=== PATIENT | female | born 1970 | race African-American/Black ===

== ENCOUNTER 2016-09-13 11:52 | Emergency (ER) | payer OTHER ==
--- NOTE | 2016-09-13 12:33 | PROVIDER DOCUMENTATION ---
HPI-General Adult - General Chief Complaint: Generalized Pain Stated Complaint: FEVER/CP/MUSCLE CRAMPS Time Seen by Provider: 09/13/16 12:07 Source: patient Allergies/Adverse Reactions: Patient Allergies Allergy/AdvReac Type Severity Reaction Status Date / Time acetaminophen [From Lortab] Allergy SWELLING Verified 09/13/16 12:09 aspirin Allergy SWELLING Verified 09/13/16 12:09 hydrocodone bitartrate * Allergy SWELLING Verified 09/13/16 12:09 [From Lortab] hydromorphone HCl * Allergy SWELLING Verified 09/13/16 12:09 [From Dilaudid] Latex, Natural Rubber Allergy ANAPHYLAXIS Verified 09/13/16 12:09 metoclopramide HCl * Allergy RASH Verified 09/13/16 12:09 [From Reglan] morphine Allergy SWELLING Verified 09/13/16 12:09 ondansetron HCl * Allergy ANAPHYLAXIS Verified 09/13/16 12:09 [From Zofran (as hydrochloride)] Penicillins Allergy SWELLING Verified 09/13/16 12:09 pregabalin [From Lyrica] Allergy RASH Verified 09/13/16 12:09 Sulfa (Sulfonamide Allergy SWELLING Verified 09/13/16 12:09 Antibiotics) tetanus and diphtheria Allergy RASH Verified 09/13/16 12:09 toxoids [Tetanus&Diphtheria Toxoid] Home Medications: Home Medication List Medication Instructions Recorded Confirmed Last Taken Type Epinephrine Auto Injector [Epipen] 0.3 mg IM DIRECTED PRN PRN 02/06/14 Unknown History Cyclobenzaprine [Flexeril] 10 mg PO TID PRN #15 tablet 09/13/16 Unknown Rx Gabapentin [Neurontin] 100 mg PO TID 09/13/16 09/13/16 09/12/16 History - History of Present Illness -Gen Adult Nature of Presenting Problems: pt is a 45 y/o F that presents to the ER with 2 days of muscle cramps, and fever. History of fibromyalgia. Denies cough/congestion, n/v/d. Has been around the flu Location of Pain/Injury: reports: generalized Quality of Pain: reports: aching, cramping Severity: reports: mild, moderate Onset/Duration: reports: gradual, 4 days ago Timing: reports: still present, constant Context/Activities at Onset: reports: none Modifying Factors: improves with: nothing Associated Symptoms: reports: EENT symptoms, fever/chills, malaise, muscle aches . denies: back/neck pain, diarrhea, nausea, shortness of breath, vomiting Similar Symptoms Previously?: No Recently seen or treated by another doctor?: No Review of Systems - Adult - REVIEW OF SYSTEMS - ADULT Constitutional: reports: fever. denies: chills Eyes: reports: no symptoms reported Ears, Nose, Mouth & Throat: reports: throat pain. denies: ear discharge, ear pain, sinus problem, throat swelling Cardiovascular: denies: chest pain, palpitations, syncope Respiratory: denies: cough, shortness of breath, wheezing Gastrointestinal: denies: abdominal pain, diarrhea, nausea, vomiting Genitourinary: reports: no symptoms reported Musculoskeletal: reports: muscle aches Integumentary: reports: no symptoms reported Neurological: denies: dizziness/vertigo, headache/migraines, seizure Psychiatric: reports: no symptoms reported Endocrine: reports: no symptoms reported Hematologic/Lymphatic: reports: no symptoms reported Allergic/Immunologic: reports: no symptoms reported All Other Systems: Reviewed and Negative Past History - Adult - PAST MEDICAL HISTORY-ADULT Review of Records: reports: Old Records Reviewed, Nursing Assessment Review, Medications Reviewed Cardiovascular: reports: murmur (heart murmur) Gastrointestinal: reports: GERD Musculoskeletal: reports: fibromyalgia - PRIOR SURGERIES/PROCEDURES Surgical/Procedure History: reports: appendectomy, cholecystectomy (cyst removed from scalp, tub rev), hernia repair, orthopedic (extremity) (L leg, R knee, R rotator cuff), other - IMMUNIZATION STATUS Childhood Immunizations: See Nurse Assessment Flu Vaccine: See Nurse Assessment - FAMILY HISTORY Family History: reviewed, not pertinent - SOCIAL HISTORY Smoking: non-smoker Living Situation: family Physical Exam-General - PHYSICAL EXAM-ADULT Initial Vital Signs Reviewed: Yes - CONSTITUTIONAL General Appearance: alert, anxious - EYES Eyes: PERRL/EOMI, pink conjunctivae - HEAD, EARS, NOSE, MOUTH & THROAT HENMT: normocephalic/atraumatic, moist mucous membranes, normal ENT inspection - NECK Neck: full range of motion, normal inspection. negative: lymphadenopathy - RESPIRATORY Respiratory: lungs clear, normal breath sounds, no respiratory distress, no accessory muscle use - CARDIOVASCULAR Cardiovascular: regular rate, rhythm, no gallop, no murmur - GASTROINTESTINAL (ABDOMEN) Abdominal Exam: normal bowel sounds, non tender, soft - MUSCULOSKELETAL Extremity: normal range of motion, normal inspection, no pedal edema, normal capillary refill - SKIN Integumentary: normal color, warm/dry - NEUROLOGIC Neurologic: grossly normal, no motor/sensory deficits - PSYCHIATRIC Psych/Mental Status: normal mood/affect, normal thought content, normal thought process, oriented x 3 Progress - PLAN OF CARE/RESULTS Progress/Plan/Lab Results: plan of care-labs, meds Vital Signs Temp Pulse Resp BP Pulse Ox 09/13/16 15:08 98.0 F 88 16 145/82 100 09/13/16 12:30 67 20 116/75 99 09/13/16 11:55 97.8 F 70 16 121/71 100 acetaminophen [From Lortab] Allergy (Verified 09/13/16 12:09) SWELLING aspirin Allergy (Verified 09/13/16 12:09) SWELLING hydrocodone bitartrate * [From Lortab] Allergy (Verified 09/13/16 12:09) SWELLING hydromorphone HCl * [From Dilaudid] Allergy (Verified 09/13/16 12:09) SWELLING Latex, Natural Rubber Allergy (Verified 09/13/16 12:09) ANAPHYLAXIS metoclopramide HCl * [From Reglan] Allergy (Verified 09/13/16 12:09) RASH morphine Allergy (Verified 09/13/16 12:09) SWELLING ondansetron HCl * [From Zofran (as hydrochloride)] Allergy (Verified 09/13/16 12 :09) ANAPHYLAXIS Penicillins Allergy (Verified 09/13/16 12:09) SWELLING pregabalin [From Lyrica] Allergy (Verified 09/13/16 12:09) RASH Sulfa (Sulfonamide Antibiotics) Allergy (Verified 09/13/16 12:09) SWELLING tetanus and diphtheria toxoids [Tetanus&Diphtheria Toxoid] Allergy (Verified 12:09) RASH Epinephrine Auto Injector [Epipen] 0.3 mg IM DIRECTED PRN PRN 02/06/14 Cyclobenzaprine [Flexeril] 10 mg PO TID PRN #15 tablet 09/13/16 Gabapentin [Neurontin] 100 mg PO TID 09/13/16 I&O 09/13/16 09/14/16 09/15/16 06:59 06:59 06:59 Output Total 50 Balance -50 Laboratory 09/13/16 09/13/16 09/13/16 15:06 13:18 13:18 WBC RBC Hgb Hct MCV MCH MCHC RDW Std Deviation Plt Count MPV Neut % (Auto) Lymph % (Auto) Howard % (Auto) Eos % (Auto) Baso % (Auto) Neut # (Auto) Lymph # (Auto) Howard # (Auto) Eos # (Auto) Baso # (Auto) Sodium Potassium Chloride Carbon Dioxide Anion Gap BUN Creatinine Estimated GFR/1.73 m2 BUN/Creatinine Ratio Glucose Calculated Osmolality Calcium Total Bilirubin AST ALT Alkaline Phosphatase Creatine Kinase Creatine Kinase Index CK-MB (CK-2) Troponin T < 0.010 Total Protein Albumin Globulin Albumin/Globulin Ratio Serum , Qual NEGATIVE Urine Source CLEAN CATCH Urine Color YELLOW Urine Turbidity CLEAR Urine pH 5.5 Ur Specific [place] 1.019 Urine Protein NEGATIVE Ur Glucose (Stick) NEGATIVE Ur Ketones (Stick) NEGATIVE Urine Blood SMALL A Urine Nitrite NEGATIVE Urine Bilirubin NEGATIVE Urobilinogen Dipstick NORMAL Urine Leukocytes NEGATIVE Urine WBC (Auto) <10 Urine RBC (Auto) <10 U Epithel Cells (Auto) <10 Urine Bacteria (Auto) NEGATIVE 09/13/16 09/13/16 13:18 13:18 WBC 5.40 RBC 4.23 Hgb 12.4 Hct 38.4 MCV 90.8 MCH 29.3 MCHC 32.3 L RDW Std Deviation 13.5 Plt Count 328 MPV 9.7 Neut % (Auto) 53.5 Lymph % (Auto) 35.4 Howard % (Auto) 7.0 Eos % (Auto) 3.7 Baso % (Auto) 0.4 Neut # (Auto) 2.89 Lymph # (Auto) 1.91 Howard # (Auto) 0.38 Eos # (Auto) 0.20 Baso # (Auto) 0.02 Sodium 139 Potassium 4.1 Chloride 102 Carbon Dioxide 23 L Anion Gap 14 BUN 14 Creatinine 0.9 Estimated GFR/1.73 m2 > 60 BUN/Creatinine Ratio 16 Glucose 85 Calculated Osmolality 277 Calcium 9.4 Total Bilirubin 0.43 AST 16 ALT 14 Alkaline Phosphatase 90 Creatine Kinase 189 H Creatine Kinase Index 0.8 CK-MB (CK-2) 1.58 Troponin T Total Protein 7.5 Albumin 4.2 Globulin 3.3 Albumin/Globulin Ratio 1.3 Serum , Qual Urine Source Urine Color Urine Turbidity Urine pH Ur Specific [place] Urine Protein Ur Glucose (Stick) Ur Ketones (Stick) Urine Blood Urine Nitrite Urine Bilirubin Urobilinogen Dipstick Urine Leukocytes Urine WBC (Auto) Urine RBC (Auto) U Epithel Cells (Auto) Urine Bacteria (Auto) Orders Category Date Time Status Saline Loc NOW Care 09/13/16 12:37 Active CBC WITH ELECTRONIC DIFF [HEME] Stat Lab 09/13/16 13:18 Completed CK PROFILE [SP CHEM] Stat Lab 09/13/16 13:18 Completed COMPREHENSIVE METABOLIC PANEL [CHEM] Stat Lab 09/13/16 13:18 Completed INFLUENZA SCREEN A/B Stat Lab 09/13/16 13:18 Completed TEST-SERUM [PREG] Stat Lab 09/13/16 13:18 Completed TROPONIN T Stat Lab 09/13/16 13:18 Completed UA NIMS W/REFLEX CULT [URINALYSIS] Stat Lab 09/13/16 15:06 Completed 0.9% Sodium Chloride Inj [Ns] 1,000 ml Med 09/13/16 12:37 Discontinued IV 999 mls/hr Lorazepam [Ativan] Med 09/13/16 12:37 Discontinued 1 mg IV NOW ONE Orphenadrine [Norflex] Med 09/13/16 14:19 Discontinued 60 mg IM NOW ONE pt will be d/c home f/u with pcp, pt was clinically stable, understood instructions and results - REASSESSMENT Reassessment #1 Time Reassessed: 15:17 Status: improving Reassessment Comment: feeling better post nor-flex - EKG 1 Time of EKG reading by physician:: 12:11 EKG Read and Signed by:: Munir Schneider EKG Interpretation (*Must complete 3 of following elements*): Abnormal Rate: 92 Rhythm: NSR [place]: normal QRS: other (low voltage QRS) IA Interval: normal ST Wave: non-specific ST changes Departure - Departure Time of Disposition Order: 15:30 DIAGNOSIS: fibromyalgia, viral infection Disposition: HOME 01 Certified Medical Emergency: Emergent Condition: Stable Additional Instructions: ED Follow Up Instructions: You have been treated by a care provider in the Emergency Department. These instructions are being provided to you so you can have an understanding of how to care for yourself upon discharge. Upon discharge from the Emergency Department, you are responsible for making arrangements for follow-up care by a physician of your choice. Take all prescribed medications as directed. Return to the Emergency Department immediately for any new or worsening symptoms. You may call the Physician Referral phone number at [phone] to obtain a list of Physicians who are taking new patients. Prescriptions: Cyclobenzaprine [Flexeril] 10 mg PO TID PRN #15 tablet PRN Reason: Spasms Referrals: Devaughn Arteaga [Primary Care Provider] - Forms: Return to School/Parent Work Instructions: Myofascial Pain Syndrome and Fibromyalgia, Muscle Pain, Adult, Viral Infections Attestation - Scribe Verification/Attestation Scribe:: Andrey Vieira Acting as Scribe for:: Munir Schneider Scribe documention review:: This chart was documented by a scribe and accurately reflects the service the provider performed and the decisions made by the provider. Physician Attestation - Physician Attestation I, the provider, attest to the following statement:: Munir Schneider Physician documentation Attestation:: This documentation recorded by the scribe accurately reflects the service I personally performed and the decisions made by me.
[2016-09-13] MEDS ORDERED: NS 1,000 ML IV ONE (12:37)
[2016-09-13] MEDS ORDERED: ATIVAN IV ONE (12:37)
[2016-09-13 13:29] LABS: MANUAL DIFF NEEDED? NO
[2016-09-13 13:33] LABS: BASO% 0.4 % (0.0-0.8); EOS% 3.7 % (0.0-10.0); HEMATOCRIT 38.4 % (37.0-47.0); HEMOGLOBIN 12.4 g/dL (12.0-16.0); LYMPH# 1.91 X1000 (1.2-3.4); LYMPH% 35.4 % (20.5-51.1); MCH 29.3 PG (27-31); MCHC 32.3 g/dL (33-37); MCV 90.8 FL (81-99); MONO# 0.38 X1000 (0.11-0.59); MPV 9.7 FL (7.4-10.4); NEUT% 53.5 % (42.2-75.2); PLT 328 X1000 (130-400); RBC 4.23 XMIL (4.2-5.4)
[2016-09-13 13:58] LABS: AGAP 14; ALBUMIN 4.2 g/dL (3.5-5.0); ALKALINE PHOSPHATASE 90 U/L (32-104); BUN 14 mg/dL (8-22); CALCIUM 9.4 mg/dL (8.8-10.2); CHLORIDE 102 mmol/L (98-107); COSMO 277; GOT 16 U/L (10-30); GPT 14 U/L (10-36); POTASSIUM 4.1 mmol/L (3.5-5.1); SODIUM 139 mmol/L (136-145); TCO2 23 mmol/L (25-35); TOTAL BILIRUBIN 0.43 mg/dL (0.20-1.00); TOTAL PROTEIN 7.5 g/dL (6.3-8.3)
[2016-09-13 14:07] LABS: CK PROFILE 189 U/L (24-173)
[2016-09-13] MEDS ORDERED: NORFLEX IM ONE (14:19)
[2016-09-13 14:22] LABS: CK INDEX 0.8 (0.0-2.5); CK-MB 1.58 ng/mL (0.0-5.0)
[2016-09-13 15:14] VITALS: BP 145/82
[2016-09-13 15:14] LABS: URINE CULTURE NEEDED? NO; URINE MICRO REVIEW NEEDED? NO; URINE SOURCE CLEAN CATCH
[2016-09-13 15:22] LABS: BILIRUBIN URINE NEGATIVE (NEGATIVE); BLOOD URINE SMALL (NEGATIVE); COLOR YELLOW; GLUCOSE URINE NEGATIVE (NEGATIVE); LEUKOCYTES URINE NEGATIVE (NEGATIVE); NITRITE URINE NEGATIVE (NEGATIVE); PH URINE 5.5; PROTEIN URINE NEGATIVE (NEGATIVE); SP GRAVITY URINE 1.019; TURBIDITY URINE CLEAR (CLEAR); UROBILINOGEN URINE NORMAL (NORMAL)
[2016-09-13 15:23] LABS: UR EPITHELIAL CELLS <10 /HPF (<10); URINE BACTERIA NEGATIVE /HPF; URINE RBC <10 /HPF (<10); URINE WBC <10 /HPF (<10)
== END 2016-09-13 15:52 | disposition home or self-care (01) ==
LOC: ED 11:52
DX: B34.9 Viral infection, unspecified (principal); M79.7 Fibromyalgia; M79.1 Myalgia; R94.31 Abnormal electrocardiogram [ECG] [EKG]; R50.9 Fever, unspecified; R53.81 Other malaise; R07.0 Pain in throat; K21.9 Gastro-esophageal reflux disease without esophagitis; R01.1 Cardiac murmur, unspecified
CPT/HCPCS: 80053; 81001; 82550; 82553; 84484; 84703; 85025; 87804; 93005; J2060; J2360; J7030